=== PATIENT | female | born 1950 ===

== ENCOUNTER → 2018-06-17 22:25 | Outpatient (REF) | payer SELFPAY ==
[2018-06-17 22:29] LABS: Bacteria Urine None Seen; RBC Urine None Seen (0-5/HPF); WBC Urine None Seen (0-5/HPF)
[2018-06-18 01:30] LABS: Free T3, Triiodothyronine Free 2.51 pg/mL (2.77-5.27)
[2018-06-18 01:43] LABS: Thyroid Stimulating Hormone 0.39 uIU/mL (0.47-4.68)
[2018-06-18 02:03] LABS: Appearance Urine UA CLEAR; Bilirubin Urine UA NEGATIVE (NEGATIVE); Color Urine UA YELLOW; Glucose Urine UA NEGATIVE (Negative); Ketones Urine UA NEGATIVE (NEGATIVE); Leukocyte Esterase Urine UA NEGATIVE (NEGATIVE); Nitrite Urine UA NEGATIVE (Negative); Occult Blood Urine UA NEGATIVE (Negative); Protein Urine UA NEGATIVE (Negative); Specific Gravity Urine UA <=1.005 (1.000-1.035); Urobilinogen Urine UA 0.2 E.U./dL (0.2); pH Urine UA 5.5 (4.5-8.0)
[2018-06-18 02:06] LABS: Creatinine Urine Random 43.4 mg/dL
[2018-06-18 02:13] LABS: Culture Indicated Urine Cult Not Indicated; Squamous Epithelial Cell Urine 0-1 /HPF (0-5/HPF); Urine Comments Microscopic Normal
== END ==
LOC: LAB 22:25
PROVIDERS: Visit Provider Naturopath
DX: E11.9 Type 2 diabetes mellitus without complications (principal); E03.9 Hypothyroidism, unspecified; I10 Essential (primary) hypertension
CPT/HCPCS: 36415; 81001; 82570; 84436; 84443; 84481